=== PATIENT | male | born 1950 | race Two or more races ===

== ENCOUNTER 2016-10-11 14:41 | Inpatient (IN) | payer OTHER ==
--- NOTE | 2016-10-11 14:55 | EDPHY ---
H & P Stated Complaint: CP central since 1130 Time Seen by Provider: 10/11/16 14:54 HPI/ROS: CHIEF COMPLAINT: Severe chest and epigastric pain HISTORY OF PRESENT ILLNESS: The patient presents to the emergency department with severe chest and epigastric pain which began at 11:30 a.m. this morning. The patient reports vomiting x2. The denies prior history of the symptoms. The patient does have a history of hypertension and takes nifedipine. The patient denies additional medications. The patient denies significant surgical history. The patient complains of 10/10 pain. The patient denies history of alcohol use. The patient denies additional complaints. He has no history of exertional chest pain or shortness of breath. REVIEW OF SYSTEMS: A comprehensive 10 point review of systems is otherwise negative aside from elements mentioned in the history of present illness. Source: Patient Exam Limitations: No limitations - Personal History Current Tetanus/Diphtheria Vaccine: Yes Current Tetanus Diphtheria and Acellular Pertussis (TDAP): Yes Tetanus Vaccine Date: 2015 - Medical/Surgical History Hx Asthma: No Hx Chronic Respiratory Disease: No Hx Diabetes: No Hx Cardiac Disease: No Hx Renal Disease: No Hx Cirrhosis: No Hx Alcoholism: No Hx HIV/AIDS: No Hx Splenectomy or Spleen Trauma: No - Social History Smoking Status: Never smoked - Physical Exam Exam: General Appearance: Alert, uncomfortable Eyes: Pupils equal and round no pallor or injection ENT, Mouth: Mucous membranes moist Respiratory: There are no retractions, lungs are clear to auscultation Cardiovascular: Regular rate and rhythm Gastrointestinal: Epigastric tenderness to palpation, generalized abdominal tenderness to palpation Neurological: A&O, normal motor function, normal sensory exam, normal cranial nerves Skin: Warm and dry, no rashes Musculoskeletal: Neck is supple nontender Extremities: symmetrical, full range of motion Constitutional: Initial Vital Signs Temperature (C) 36.1 C 10/11/16 14:48 Heart Rate 86 10/11/16 14:48 Respiratory Rate 18 10/11/16 14:48 Blood Pressure 110/70 10/11/16 14:48 O2 Sat (%) 93 10/11/16 14:48 O2 Delivery Mode Room Air Allergies/Adverse Reactions: No Known Allergies Allergy (Unverified 10/11/16 14:53) Home Medications: Medication Instructions Recorded Meclizine HCl 25 mg PO DAILY PRN 10/11/16 NIFEdipine [Nifedipine ER] 30 mg PO DAILY 10/11/16 Medical Decision Making - Diagnostics EKG Interpretation: EKG: Complete interpretation has been separately recorded in the [employer] archive. Summary impression: Sinus rhythm, rate 79 Imaging: CT chest abdomen pelvis with IV contrast: Acute pancreatitis is noted, no evidence of dissection or pulmonary embolism. Images reviewed by myself and discussed with radiologist Dr. Jono Valero ED Course/Re-evaluation: The patient presents to the ED with acute chest and epigastric pain. I attempted a bedside ultrasound but was unable to visualize the aorta secondary to intra-abdominal gas. The patient was taken for a stat CT scan of the chest abdomen pelvis given his initial exam and concerns about possible dissection or pulmonary embolism. His initial EKG demonstrates no evidence of ischemia. The patient was noted to have an elevated lipase of 13,000. The patient denies any alcohol use. The patient is noted to have evidence of biliary obstruction. There is no obvious source of this noted on his CT scan. Consultation was made with Dr. Devyn Hall who will admit the patient. Dr. Hall will order an MRCP for further evaluation of the patient's biliary obstruction and pancreatitis. Differential Diagnosis: Differential diagnosis considered includes pancreatitis, cholecystitis, aortic dissection, myocardial infarction, pulmonary embolism - Data Points Laboratory Results: Laboratory Results 10/11/16 14:58 10/11/16 14:58 10/11/16 10/11/16 10/11/16 15:11 14:58 14:58 WBC 13.64 10^3/uL H 10^3/uL (3.80-9.50) RBC 5.69 10^6/uL 10^6/uL (4.40-6.38) Hgb 18.4 g/dL H g/dL (13.7-17.5) Hct 50.3 % % (40.0-51.0) MCV 88.4 fL fL (81.5-99.8) MCH 32.3 pg pg (27.9-34.1) MCHC 36.6 g/dL g/dL (32.4-36.7) RDW 12.2 % % (11.5-15.2) Plt Count 215 10^3/uL 10^3/uL (150-400) MPV 11.3 fL fL (8.7-11.7) Neut % (Auto) 82.1 % H % (39.3-74.2) Lymph % (Auto) 9.7 % L % (15.0-45.0) [place] % (Auto) 7.3 % % (4.5-13.0) Eos % (Auto) 0.4 % L % (0.6-7.6) Baso % (Auto) 0.2 % L % (0.3-1.7) Nucleat RBC Rel Count 0.0 % % (0.0-0.2) Absolute Neuts (auto) 11.20 10^3/uL H 10^3/uL (1.70-6.50) Absolute Lymphs (auto) 1.32 10^3/uL 10^3/uL (1.00-3.00) Absolute Monos (auto) 1.00 10^3/uL H 10^3/uL (0.30-0.80) Absolute Eos (auto) 0.05 10^3/uL 10^3/uL (0.03-0.40) Absolute Basos (auto) 0.03 10^3/uL 10^3/uL (0.02-0.10) Absolute Nucleated RBC 0.00 10^3/uL 10^3/uL (0-0.01) Immature Gran % 0.3 % % (0.0-1.1) Immature Gran # 0.04 10^3/uL 10^3/uL (0.00-0.10) Sodium 141 mEq/L mEq/L (134-144) Potassium 4.0 mEq/L mEq/L (3.5-5.2) Chloride 105 mEq/L mEq/L (97-110) Carbon Dioxide 24 mEq/l mEq/l (22-31) Anion Gap 12 mEq/L mEq/L (8-16) BUN 17 mg/dL mg/dL (7-23) Creatinine 1.0 mg/dL mg/dL (0.7-1.3) Estimated GFR > 60 Glucose 181 mg/dL H mg/dL (70-100) Calcium 9.4 mg/dL mg/dL (8.5-10.4) Total Bilirubin 7.9 mg/dL H mg/dL (0.1-1.4) Conjugated Bilirubin 5.7 mg/dL H mg/dL (0.0-0.5) Unconjugated Bilirubin 2.2 mg/dL H mg/dL (0.0-1.1) AST 280 IU/L H IU/L (17-59) ALT 240 IU/L H IU/L (21-72) Alkaline Phosphatase 149 IU/L H IU/L (38-126) Troponin I < 0.012 ng/mL ng/mL (0-0.034) Total Protein 7.8 g/dL g/dL (6.3-8.2) Albumin 4.2 g/dL g/dL (3.5-5.0) Lipase 86657.0 IU/L H IU/L (23-300) Departure - Departure Disposition: [facility] Inpatient Acute Clinical Impression: Pancreatitis, Biliary obstruction Condition: Fair
--- NOTE | 2016-10-11 14:59 | CPEKG ---
Heart Rate: 79 RR Interval: 759 P-R Interval: 168 QRSD Interval: 90 QT Interval: 376 QTC Interval: 432 P [place]: 58 QRS [place]: -41 T Wave [place]: 38 EKG Severity - ABNORMAL ECG - EKG Impression: SINUS RHYTHM EKG Impression: LEFT ANTERIOR FASCICULAR BLOCK Electronically Signed By: Esteban Mcgovern 11-Oct-2016 15:29:25
[2016-10-11 15:16] LABS: % IMMATURE GRANULYOCYTES 0.3 % (0.0-1.1); ABSOLUTE IMMATURE GRANULOCYTES 0.04 10^3/uL (0.00-0.10); ADD DIFF? NO; ADD MORPH? NO; ADD SCAN? NO; ATYPICAL LYMPHOCYTE FLAG 0 (0-99); FRAGMENT RBC FLAG 0 (0-99); HEMATOCRIT 50.3 % (40.0-51.0); HEMOGLOBIN 18.4 g/dL (13.7-17.5); LEFT SHIFT FLG 10 (0-99); LIPEMIA HEMOLYSIS FLAG 90 (0-99); MEAN CELL HEMOGLOBIN 32.3 pg (27.9-34.1); MEAN CELL HEMOGLOBIN CONCENTR. 36.6 g/dL (32.4-36.7); MEAN CELL VOLUME 88.4 fL (81.5-99.8); MEAN PLATELET VOLUME 11.3 fL (8.7-11.7); PLATELET CLUMPS FLAG 10 (0-99); PLATELET COUNT 215 10^3/uL (150-400); RED BLOOD CELL COUNT 5.69 10^6/uL (4.40-6.38); RED CELL DISTRIBUTION WIDTH 12.2 % (11.5-15.2)
[2016-10-11] MEDS ORDERED: IOPAMIDOL (ISOVUE 370) 100 ML BTL IV ONE (15:19)
[2016-10-11 15:23] LABS: ALANINE AMINOTRANSFERASE 240 IU/L (21-72); ALBUMIN 4.2 g/dL (3.5-5.0); ALKALINE PHOSPHATASE 149 IU/L (38-126); ANION GAP 12 mEq/L (8-16); ASPARTATE AMINOTRANSFERASE 280 IU/L (17-59); BILIRUBIN,TOTAL 7.9 mg/dL (0.1-1.4); BILIRUBIN-CONJUGATED 5.7 mg/dL (0.0-0.5); BILIRUBIN-UNCONJUGATED 2.2 mg/dL (0.0-1.1); CALCIUM 9.4 mg/dL (8.5-10.4); CARBON DIOXIDE 24 mEq/l (22-31); CHLORIDE 105 mEq/L (97-110); GLOMERULAR FILTRATION RATE > 60; GLUCOSE 181 mg/dL (70-100); SODIUM 141 mEq/L (134-144); TOTAL PROTEIN 7.8 g/dL (6.3-8.2)
[2016-10-11] MEDS ORDERED: HYDROmorphONE/DILAUDID 1 MG/ML SYR IVP ONE ×2 (15:58→18:15)
[2016-10-11] MEDS ORDERED: ONDANSETRON 4 MG/2 ML VIAL IVP ONE (15:58)
[2016-10-11] MEDS ORDERED: NS 1,000 ML IV ONE (15:58)
[2016-10-11] MEDS ORDERED: HYDROmorphONE/DILAUDID 1 MG/ML SYR ONE (17:31)
[2016-10-11] MEDS ORDERED: HYDROmorphONE/DILAUDID 1 MG/ML SYR IVP PRN (18:46)
--- NOTE | 2016-10-11 18:51 | PDGENHP ---
History and Physical History and Physical: HISTORY AND PHYSICAL CC: Abdominal pain in epigastrium HISTORY: This patient who has no history of abdominal surgeries or illnesses in the past comes in with 24 hours of epigastric pain and vomiting. Has been no blood in his emesis. He has been having normal stools. He does not take any nonsteroidal anti-inflammatory medicines. He has no known fevers but was having some sweats earlier during have significant vomiting episodes. Has never had any episodes like this before. There is no family history of abdominal illnesses or surgeries. He has no use of alcohol in his lifetime ROS: A comprehensive 10 system review revealed no other significant findings PAST MEDICAL HISTORY: Really quite healthy with no significant illnesses FAMILY MEDICAL HISTORY: He and his family states there is no significant illness in the family SOCIAL HISTORY: He is here visiting family members. He lives in [place]. He had previously moved to the [facility] and worked here as a [employer] until 10 years ago when he retired and moved back to [place]. No use of tobacco alcohol or drugs MEDICATIONS: The patients list has been reconciled by our clinical pharmacist in the EMR. I have reviewed the list and ordered appropriate medicines. 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 Gallbladder is enlarged but the bile duct does not look enlarged. Stones are not specifically identified. No significant vascular abnormalities. There is also CT scan of the chest done without concerning abnormality. ASSESSMENT: -ACUTE PANCREATITIS IN THE ABSENCE OF ALCOHOL WITH ELEVATED LIVER ENZYMES AND BILIRUBIN. STONES ARE HIGHLY SUSPECTED THOUGH NONE SEEN ON THE CT. HE DOES NOT HAVE SIGNS OF PANCREATIC COMPLICATIONS OR HIGH RISK FOR COMPLICATIONS AT THE MOMENT. PLANS: -inpatient admission as he will clearly need more than 48 hours to recover to the point of being able to eat safely and will need other procedures -Abdominal ultrasound to look for stones -Could potentially need MRCP and/or ERCP -At some point may need his gallbladder removed as well I have reviewed the patient's case in detail with Dr. akhil Matute
[2016-10-11 19:32] LABS: WBC, SYNOVIAL FLUID 45039 /mm3 (0-150)
[2016-10-11] MEDS ORDERED: HYDROmorphONE/DILAUDID 2 MG/ML INJ IVP ONE (19:45)
[2016-10-11] MEDS: NS 1,000 ML IV SCH (20:52)
[2016-10-11] MEDS ORDERED: NALOXONE HCL 0.4 MG/ML INJ IVP PRN (21:40)
[2016-10-11] MEDS: HYDROmorphONE/DILAUDID 6 MG/30 ML PCA IV PRN (22:13)
[2016-10-12] MEDS: ZOLPIDEM TARTRATE 5 MG TAB PO PRN (01:43)
[2016-10-12] MEDS: NS 1,000 ML IV SCH ×3 (03:53→20:38)
[2016-10-12] MEDS: ONDANSETRON 4 MG/2 ML VIAL IVP PRN (05:10)
[2016-10-12 05:28] LABS: % IMMATURE GRANULYOCYTES 0.4 % (0.0-1.1); ABSOLUTE IMMATURE GRANULOCYTES 0.09 10^3/uL (0.00-0.10); ADD DIFF? NO; ADD MORPH? NO; ADD SCAN? NO; ATYPICAL LYMPHOCYTE FLAG 0 (0-99); FRAGMENT RBC FLAG 0 (0-99); HEMATOCRIT 52.8 % (40.0-51.0); HEMOGLOBIN 18.2 g/dL (13.7-17.5); LEFT SHIFT FLG 20 (0-99); LIPEMIA HEMOLYSIS FLAG 90 (0-99); MEAN CELL HEMOGLOBIN CONCENTR. 34.5 g/dL (32.4-36.7); MEAN CELL VOLUME 92.8 fL (81.5-99.8); MEAN PLATELET VOLUME 11.5 fL (8.7-11.7); PLATELET CLUMPS FLAG 10 (0-99); PLATELET COUNT 220 10^3/uL (150-400); RED BLOOD CELL COUNT 5.69 10^6/uL (4.40-6.38); RED CELL DISTRIBUTION WIDTH 12.5 % (11.5-15.2)
[2016-10-12 05:43] LABS: ALANINE AMINOTRANSFERASE 174 IU/L (21-72); ALBUMIN 3.7 g/dL (3.5-5.0); ALKALINE PHOSPHATASE 124 IU/L (38-126); ANION GAP 16 mEq/L (8-16); ASPARTATE AMINOTRANSFERASE 105 IU/L (17-59); BILIRUBIN,TOTAL 2.4 mg/dL (0.1-1.4); CALCIUM 8.6 mg/dL (8.5-10.4); CARBON DIOXIDE 18 mEq/l (22-31); CHLORIDE 110 mEq/L (97-110); CREATININE 1.1 mg/dL (0.7-1.3); GLOMERULAR FILTRATION RATE > 60; GLUCOSE 115 mg/dL (70-100); POTASSIUM 4.4 mEq/L (3.5-5.2); SODIUM 144 mEq/L (134-144); TOTAL PROTEIN 7.1 g/dL (6.3-8.2)
[2016-10-12 05:50] LABS: BILIRUBIN-CONJUGATED 0.9 mg/dL (0.0-0.5); BILIRUBIN-UNCONJUGATED 1.5 mg/dL (0.0-1.1)
[2016-10-12] MEDS: ACETAMINOPHEN 325 MG TAB PO PRN ×2 (06:28→16:32)
[2016-10-12] MEDS: ENOXAPARIN 40 MG/0.4 ML SYR SC SCH (08:16)
[2016-10-12] MEDS: NIFEdipine ER 30 MG TAB PO SCH (08:16)
[2016-10-12] MEDS ORDERED: IBUPROFEN 800 MG TAB PO ONE (08:56)
[2016-10-12] MEDS ORDERED: NS 1,000 ML IV ONE ×2 (08:56→11:34)
[2016-10-12 12:29] LABS: CHOLESTEROL 145 mg/dL (140-220); CHOLESTEROL/HDL RATIO 4.68 RATIO (1.00-4.97); HIGH DENSITY LIPOPROTEIN 31 mg/dL (40-65); LDL/HDL RATIO 2.97 RATIO (1.00-3.64); LOW DENSITY LIPOPROTEIN 92 mg/dL (80-100); NON-HIGH DENSITY LIPOPROTEIN 114 mg/dL (90-129); TRIGLYCERIDE 113 mg/dL (40-150); VERY LOW DENSITY LIPOPROTEINS 22 mg/dL (8-25)
[2016-10-12] MEDS: HYDROmorphONE/DILAUDID 6 MG/30 ML PCA IV PRN (13:31)
--- NOTE | 2016-10-12 14:13 | HOSPPROG ---
Hospitalist Progress Note Assessment/Plan: # Acute pancreatitis- severe- CT abdomen pelvis( personally reviewed and interpreted) shows severe pancreatitis no pseudocyst- or cholelithiasis patient with sudden onset severe epigastric pain- no significant alcohol history- meds reviewed none associated with pancreatitis - continue NPO - continue IV fluids - continue IV pain meds - send lipid panel - MRCP # SIRS secondary to pancreatitis- patient tachycardic with a leukocytosis of 20 oxygen saturations 92% on 1 L blood cultures no growth to date- UA negative - no empiric antibiotics - continue aggressive fluid resuscitation # sinus tachycardia- suspect secondary to hypovolemia and pain - treat as above # prophylaxis Lovenox # diet NPO # disposition greater than 2 midnights as patient is requiring IV pain medications and further diagnostics for pancreatitis I Have discussed case with the RN- we will bolus normal saline today to address hypovolemia and tachycardia Subjective: terrible pain Objective: Vital Signs Temp Pulse Resp BP Pulse Ox 36.8 C 105 H 16 131/80 H 91 L 10/12/16 12:37 10/12/16 12:37 10/12/16 12:37 10/12/16 12:37 10/12/16 12:37 Laboratory Results 10/12/16 05:11 10/12/16 05:11 10/11/16 10/12/16 10/13/16 05:59 05:59 05:59 Intake Total 2142 Output Total 320 250 Balance 1822 -250 - Physical Exam Constitutional: appears nourished Eyes: anicteric sclera Ears, Nose, Mouth, Throat: dry mucous membranes Cardiovascular: regular rate and rhythym, tachycardia Respiratory: no respiratory distress Gastrointestinal: normoactive bowel sounds Genitourinary: no bladder fullness Skin: warm, normal color Musculoskeletal: No asymmetric calves Neurologic: AAOx3 Psychiatric: interacting appropriately Lymph, Heme, Immunologic: no cervical LAD ICD10 Worksheet Patient Problems: Problems Problem Status Onset Biliary obstruction Acute Pancreatitis Acute
[2016-10-13] MEDS: ACETAMINOPHEN 325 MG TAB PO PRN ×2 (02:10→22:34)
[2016-10-13] MEDS: NS 1,000 ML IV SCH ×2 (02:50→20:21)
[2016-10-13 05:31] LABS: HEMATOCRIT 47.2 % (40.0-51.0); HEMOGLOBIN 16.1 g/dL (13.7-17.5); MEAN CELL HEMOGLOBIN 31.6 pg (27.9-34.1); MEAN CELL HEMOGLOBIN CONCENTR. 34.1 g/dL (32.4-36.7); MEAN CELL VOLUME 92.5 fL (81.5-99.8); RED BLOOD CELL COUNT 5.1 10^6/uL (4.40-6.38); RED CELL DISTRIBUTION WIDTH 12.5 % (11.5-15.2)
[2016-10-13 05:57] LABS: ALANINE AMINOTRANSFERASE 96 IU/L (21-72); ALKALINE PHOSPHATASE 89 IU/L (38-126); ANION GAP 9 mEq/L (8-16); ASPARTATE AMINOTRANSFERASE 40 IU/L (17-59); BILIRUBIN,TOTAL 2.4 mg/dL (0.1-1.4); CARBON DIOXIDE 21 mEq/l (22-31); CHLORIDE 116 mEq/L (97-110); CREATININE 0.8 mg/dL (0.7-1.3); GLOMERULAR FILTRATION RATE > 60; GLUCOSE 96 mg/dL (70-100); POTASSIUM 4.1 mEq/L (3.5-5.2); SODIUM 146 mEq/L (134-144); TOTAL PROTEIN 5.8 g/dL (6.3-8.2)
[2016-10-13 06:03] LABS: BILIRUBIN-UNCONJUGATED 1.4 mg/dL (0.0-1.1)
[2016-10-13] MEDS: NIFEdipine ER 30 MG TAB PO SCH (08:05)
[2016-10-13] MEDS: ENOXAPARIN 40 MG/0.4 ML SYR SC SCH (08:05)
--- NOTE | 2016-10-13 12:29 | HOSPPROG ---
Hospitalist Progress Note Assessment/Plan: # Acute zpxincuqulrt-reegkt-rosvegscae 2/ passed cholelithiasis MRCP( personally reviewed and interpreted) shows cholelithiasis and no cholecystitis- no ductal dilatation noted patient with sudden onset severe epigastric pain- no significant alcohol history- meds reviewed none associated with pancreatitis - continue NPO - potentially advanced to clear liquids later - continue IV fluids - continue IV pain meds # SIRS secondary to pancreatitis- patient tachycardic with a leukocytosis of 20 oxygen saturations 92% on 1 L blood cultures no growth to date- UA negative - no empiric antibiotics - continue aggressive fluid resuscitation # acute leukocytosis - 13->20-> 19 suspecting secondary to acute pancreatitis MRCP without cholecystitis- blood cultures NGTD - no empiric antibiotics continue to monitor # acute hypoxic respiratory failure- oxygen saturations 93% on 3 L- suspect this is related to pain medication since splinting secondary to abdominal pain chest imaging on admit without infiltrates - encouraged ambulation - encouraged incentive spirometer # sinus tachycardia- suspect secondary to hypovolemia and pain- improved but persistent - treat as above # prophylaxis Lovenox # diet NPO # disposition greater than 2 midnights as patient is requiring IV pain medications and further diagnostics for pancreatitis I Have discussed case with the RN- and encourage ambulation and incentive spirometry Subjective: pain slightly improved today Objective: Vital Signs Temp Pulse Resp BP Pulse Ox 36.7 C 112 H 24 H 121/72 H 90 L 10/13/16 11:26 10/13/16 11:26 10/13/16 11:33 10/13/16 11:26 10/13/16 11:26 Laboratory Results 10/13/16 05:21 10/13/16 05:21 10/12/16 10/13/16 10/14/16 05:59 05:59 05:59 Intake Total 2142 3412 Output Total 320 920 450 Balance 1822 2492 -450 - Physical Exam Constitutional: appears nourished Eyes: anicteric sclera Ears, Nose, Mouth, Throat: dry mucous membranes Cardiovascular: regular rate and rhythym, tachycardia Respiratory: no respiratory distress, no rales or rhonchi Gastrointestinal: normoactive bowel sounds, tenderness, No guarding, No rebound Genitourinary: no bladder fullness Skin: warm, normal color Musculoskeletal: No asymmetric calves Neurologic: AAOx3 Psychiatric: interacting appropriately, not anxious Lymph, Heme, Immunologic: no cervical LAD ICD10 Worksheet Patient Problems: Problems Problem Status Onset Biliary obstruction Acute Pancreatitis Acute
[2016-10-13] MEDS ORDERED: NS 1,000 ML IV ONE (12:52)
[2016-10-13] MEDS: HYDROmorphONE/DILAUDID 6 MG/30 ML PCA IV PRN (15:00)
[2016-10-13] MEDS: ZOLPIDEM TARTRATE 5 MG TAB PO PRN (22:34)
[2016-10-14 05:30] LABS: ALANINE AMINOTRANSFERASE 68 IU/L (21-72); ALBUMIN 2.7 g/dL (3.5-5.0); ALKALINE PHOSPHATASE 82 IU/L (38-126); ANION GAP 7 mEq/L (8-16); ASPARTATE AMINOTRANSFERASE 29 IU/L (17-59); BILIRUBIN,TOTAL 1.6 mg/dL (0.1-1.4); CARBON DIOXIDE 24 mEq/l (22-31); CHLORIDE 114 mEq/L (97-110); CREATININE 0.7 mg/dL (0.7-1.3); GLOMERULAR FILTRATION RATE > 60; GLUCOSE 91 mg/dL (70-100); POTASSIUM 3.8 mEq/L (3.5-5.2); SODIUM 145 mEq/L (134-144); TOTAL PROTEIN 5.7 g/dL (6.3-8.2)
[2016-10-14] MEDS: NS 1,000 ML IV SCH ×2 (06:50→21:46)
[2016-10-14] MEDS: HYDROmorphONE/DILAUDID 6 MG/30 ML PCA IV PRN (08:11)
[2016-10-14] MEDS: ENOXAPARIN 40 MG/0.4 ML SYR SC SCH (08:12)
[2016-10-14] MEDS: NIFEdipine ER 30 MG TAB PO SCH (08:12)
[2016-10-14] MEDS ORDERED: PNEUMOC 13-VAL CONJ-DIP CRM/PF 0.5 ML SYR IM ONE ×2 (08:30→16:00)
[2016-10-14] MEDS: ACETAMINOPHEN 325 MG TAB PO PRN (11:27)
--- NOTE | 2016-10-14 11:52 | HOSPPROG ---
Hospitalist Progress Note Assessment/Plan: DIAGNOSES: # Acute pwappknubmug-bvzabr-arigzhgjew 2/2 passed cholelithiasis -MRCP shows cholelithiasis and no cholecystitis, no ductal dilatation noted -still with bad pain and now with fever; ? 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 -improved after arthrocentesis and with rest # prophylaxis Lovenox # diet NPO PLANS: -continue NPO, symptomatic medications, IV fluids -will consult Gastroenterology at this time; would consider whether repeat CT would be of use were whether we should consider ERCP or endoscopic ultrasound SUBJECTIVE: Still with significant epigastric pain and midback pain Feels weak a bit lightheaded with ambulation Some chills No appetite L knee no longer hurts OBJECTIVE Vitals reviewed: Exam: alert oriented looks uncomfortable skin warm dry color ok, no jaundice resps not labored lungs clear BSs heart regular abd soft mildly distended and with some epigastric tenderness, no rebound, bowel sounds absent limbs warm, no edema; no effusion at left knee or tenderness at this time; moving knee a lot better iv site ok Laboratory data: liver enzymes and bili normalizing, it somewhat hypernatremic, renal fxn ok, sugars normal today L knee synovial fluid w Ca Pyrophosphate crystals and 45,000 wbcs Objective: Vital Signs Temp Pulse Resp BP Pulse Ox 38.2 C 106 H 20 130/93 H 92 10/14/16 10:32 10/14/16 10:32 10/14/16 10:32 10/14/16 10:32 10/14/16 10:32 Laboratory Results 10/13/16 05:21 10/14/16 04:56 10/13/16 10/14/16 10/15/16 06:59 06:59 06:59 Intake Total 3412 1100 Output Total 920 1775 300 Balance 2492 -675 -300 ICD10 Worksheet Patient Problems: Problems Problem Status Onset Biliary obstruction Acute Pancreatitis Acute
[2016-10-14] MEDS ORDERED: IOPAMIDOL (ISOVUE-300) 100 ML BTL IV ONE (14:17)
[2016-10-14] MEDS: ONDANSETRON 4 MG/2 ML VIAL IVP PRN (21:47)
[2016-10-14] MEDS: ZOLPIDEM TARTRATE 5 MG TAB PO PRN (21:47)
[2016-10-15 04:52] LABS: % IMMATURE GRANULYOCYTES 0.5 % (0.0-1.1); ABSOLUTE IMMATURE GRANULOCYTES 0.08 10^3/uL (0.00-0.10); ADD DIFF? NO; ADD MORPH? NO; ADD SCAN? NO; ATYPICAL LYMPHOCYTE FLAG 0 (0-99); FRAGMENT RBC FLAG 0 (0-99); HEMATOCRIT 42.1 % (40.0-51.0); HEMOGLOBIN 14.7 g/dL (13.7-17.5); LEFT SHIFT FLG 40 (0-99); LIPEMIA HEMOLYSIS FLAG 90 (0-99); MEAN CELL HEMOGLOBIN 32.5 pg (27.9-34.1); MEAN CELL HEMOGLOBIN CONCENTR. 34.9 g/dL (32.4-36.7); MEAN CELL VOLUME 92.9 fL (81.5-99.8); MEAN PLATELET VOLUME 11.4 fL (8.7-11.7); PLATELET CLUMPS FLAG 0 (0-99); PLATELET COUNT 198 10^3/uL (150-400); RED BLOOD CELL COUNT 4.53 10^6/uL (4.40-6.38); RED CELL DISTRIBUTION WIDTH 12.4 % (11.5-15.2)
[2016-10-15 04:56] LABS: ANION GAP 10 mEq/L (8-16); CARBON DIOXIDE 25 mEq/l (22-31); CHLORIDE 111 mEq/L (97-110); CREATININE 0.6 mg/dL (0.7-1.3); GLOMERULAR FILTRATION RATE > 60; GLUCOSE 84 mg/dL (70-100); POTASSIUM 3.2 mEq/L (3.5-5.2); SODIUM 146 mEq/L (134-144)
[2016-10-15] MEDS: NS 1,000 ML IV SCH (08:46)
[2016-10-15] MEDS ORDERED: D5W 1/4 NS W/ 20 KCl/L 1,000 ML IV SCH (09:00)
[2016-10-15] MEDS: NIFEdipine ER 30 MG TAB PO SCH (09:58)
[2016-10-15] MEDS: ENOXAPARIN 40 MG/0.4 ML SYR SC SCH (09:58)
[2016-10-15 10:41] LABS: COLOR YELLOW; LEUKOCYTE ESTERASE,URINE NEGATIVE (NEGATIVE); NITRITE,URINE NEGATIVE (NEGATIVE)
--- NOTE | 2016-10-15 10:46 | HOSPPROG ---
Hospitalist Progress Note Assessment/Plan: DIAGNOSES: # Acute sdzchrgiebvd-rowzxu-rwiubpulrd 2/2 passed cholelithiasis -MRCP shows cholelithiasis and no cholecystitis, no ductal dilatation noted -repeat CT with no necrosis, stones, ductal dilatation, phlegmon or other complication -seems to be improving slightly today and is actually thirsty and hungry # Fever -suspect this is due to his pancreatitis but at this time will look for other sources with cultures and chest x-ray # SIRS secondary to pancreatitis -at this time no specific sign of infection or necrosis # acute delirium, metabolic multifactorial with fever, electrolyte abnormalities, inflammation, pain medicine, disrupted sleep, disrupted nutrition , etc # acute hypoxic respiratory failure- oxygen saturations 93% on 3 L -likely related to pain medication and splinting secondary to abdominal pain -encouraged ambulation and spirometer # 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 -improved after arthrocentesis and with rest # prophylaxis Lovenox # diet NPO PLANS: -trial of oral fluids today, otherwise continue symptomatic medications, IV fluids -chest x-ray -blood cultures and urine culture -delirium treatment and prevention measures, will avoid any sedating medicines as possible -Will add melatonin for sleep at night SUBJECTIVE: He has had some degree of confusion through the night, better this morning but still very mildly disoriented At this time slightly less epigastric pain and midback pain but still using BIZTALK ARCHITECT narcotic Still a bit lightheaded with ambulation No longer having chills Now very thirsty and slightly hungry L knee no longer hurts OBJECTIVE Vitals reviewed: 37.6 maximum temperature so far today otherwise stable Exam: alert oriented more relaxed this morning, minimal disorientation overall doing well mentation [place] this morning skin warm dry color ok, no jaundice resps not labored lungs clear BSs heart regular abd soft mildly distended, less epigastric tenderness, no rebound, bowel sounds absent limbs warm, no edema; no effusion at left knee or tenderness at this time; moving knee well iv site ok Objective: Vital Signs Temp Pulse Resp BP Pulse Ox 37.6 C 106 H 20 147/83 H 90 L 10/15/16 10:00 10/15/16 10:00 10/15/16 10:00 10/15/16 10:00 10/15/16 10:00 Laboratory Results 10/15/16 04:36 10/15/16 04:36 10/14/16 10/15/16 10/16/16 06:59 06:59 06:59 Intake Total 1100 1614 Output Total 1315 2122 300 Balance -675 -511 -300 ICD10 Worksheet Patient Problems: Problems Problem Status Onset Biliary obstruction Acute Pancreatitis Acute
[2016-10-15] MEDS: MELATONIN 3 MG TAB PO SCH (22:39)
[2016-10-16] MEDS: D5W 1/4 NS W/ 20 KCl/L 1,000 ML IV SCH ×2 (01:29→14:40)
[2016-10-16] MEDS: NIFEdipine ER 30 MG TAB PO SCH (08:53)
[2016-10-16] MEDS: ENOXAPARIN 40 MG/0.4 ML SYR SC SCH (08:53)
--- NOTE | 2016-10-16 11:36 | HOSPPROG ---
Hospitalist Progress Note Assessment/Plan: DIAGNOSES: # Acute pancreatitis-suspecting 2/2 passed cholelithiasis -MRCP shows cholelithiasis and no cholecystitis, no ductal dilatation noted -repeat CT with no necrosis, stones, ductal dilatation, phlegmon or other complication -notably better today with no pain, no tenderness, and is getting 100 for solid food, tolerating clear liquids well, in he no longer has fevers. Also his oxygen needs her decreased markedly to 1 L. 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 However I did talk to him about the recommendation to have his gallbladder removed in the potential timing of that. Given the options of doing that now or as an outpatient he would prefer to proceed with cholecystectomy at this time. I will therefore make him NPO and I have consulted Dr. Lisa from General surgery. -will hold his Lovenox for now -continue ambulation SUBJECTIVE: His pain is resolved at this point is starting to feel hungry for solid food He is not short of breath He and his family and the nursing staff for no longer noticing confusion He is ambulating well OBJECTIVE Vitals reviewed: At this time stable without fever Exam: alert oriented relaxed skin warm dry color ok, no jaundice resps not labored lungs clear BSs heart regular abd soft mildly nondistended, no tenderness at all today limbs warm, no edema; no effusion at left knee or tenderness at this time; moving knee well iv site ok Objective: Vital Signs Temp Pulse Resp BP Pulse Ox 37.5 C 77 16 129/79 H 92 10/16/16 10:20 10/16/16 10:20 10/16/16 10:20 10/16/16 10:20 10/16/16 10:20 Laboratory Results 10/15/16 04:36 10/15/16 04:36 10/15/16 10/16/16 10/17/16 06:59 06:59 06:59 Intake Total 1614 1848 Output Total 6047 891 Balance -511 1198 ICD10 Worksheet Patient Problems: Problems Problem Status Onset Biliary obstruction Acute Pancreatitis Acute
[2016-10-16 12:26] LABS: HEMATOCRIT 41.3 % (40.0-51.0); HEMOGLOBIN 14.7 g/dL (13.7-17.5); MEAN CELL HEMOGLOBIN 31.8 pg (27.9-34.1); MEAN CELL HEMOGLOBIN CONCENTR. 35.6 g/dL (32.4-36.7); MEAN CELL VOLUME 89.4 fL (81.5-99.8); RED BLOOD CELL COUNT 4.62 10^6/uL (4.40-6.38); RED CELL DISTRIBUTION WIDTH 12.2 % (11.5-15.2)
[2016-10-16 12:34] LABS: INR 1.15 (0.83-1.16); PROTIME(PATIENT) 14.6 SEC (12.0-15.0)
[2016-10-16 12:38] LABS: ALANINE AMINOTRANSFERASE 55 IU/L (21-72); ALKALINE PHOSPHATASE 90 IU/L (38-126); ANION GAP 5 mEq/L (8-16); ASPARTATE AMINOTRANSFERASE 40 IU/L (17-59); BILIRUBIN,TOTAL 1.7 mg/dL (0.1-1.4); CALCIUM 7.8 mg/dL (8.5-10.4); CARBON DIOXIDE 30 mEq/l (22-31); CHLORIDE 102 mEq/L (97-110); CREATININE 0.6 mg/dL (0.7-1.3); GLOMERULAR FILTRATION RATE > 60; GLUCOSE 121 mg/dL (70-100); POTASSIUM 3.3 mEq/L (3.5-5.2); SODIUM 137 mEq/L (134-144)
--- NOTE | 2016-10-16 15:08 | PDCONSULT ---
Cable Former Note: Mr. Nixon was admitted 10/11/16 for evaluation and treatment of abdominal pain. He was found to have pancreatitis and gallstones. He was treated medically and has been improving slowly. Surgical consultation was requested today at 12:30 for consideration of cholecystectomy. He had a clear liquid lunch today and received Lovenox 40 mg this morning at 0853. PMH: HTN chronic meds: Nifedipine XL 30 mg po q day. (He reports having received other medications from different doctors in [place], but stopped taking those) denies tobacco/EtOH use NKDA no prior surgery SH: here visiting family from [place]/daughter, and grand-daughter at the bedside FH: [place] ROS: denies jaundice, prior attacks of abd pain, melena, hamotchezia PE: pleasant elderly male in mild distress HEENT: - icterus/adenopathy Lungs: clear with dimished breath sounds at bases CVS: RRR/tachy Abd: soft/distended, tender epigastrium no RUQ tenderness/liver edge palpable 3 cm below costal margin Imaging studies: Ultrasound, CT x 2, MRI reviewed- CBD 3mm, multiple large gallstones, moderated inflammation/edema of the pancreas, no significant gallbladder wall thickening. Lab: bili 1.7 (elevated since admission, primarily unconjugated) transaminases elevated on admission now normal, wbc 14.5, HCT 41%, platlets 198K, PT/INR wnl Imp: 1. Pancreatitis, resolving/etiology uncertain. Gallstone pancreatitis not excluded, however, no dilatation of extrahepatic ducts and unconjugated hyperbilirubinemia argue against choledocholithiasis. 2. gallstones: multiple large gallstone noted on admission ultrasound and subsequent MRI 3. HTN 4. obesity (BMI>30) 5. anticoagulation-last Lovenox given at 0853 this morning Rec: I discussed the findings with the patient in detail in [place] and with the use of anatomic diagrams. He understands there is uncertainty in the etiology of his pancreatitis. We discussed cholecystectomy and he would like to proceed due to lack of resources in his home town in [place]. I discussed with him the risks of surgery and expected recovery. Informed consent was obtained. Surgery will be schedule at 2100 tonight due to anticoagulant administration this morning.
[2016-10-16] MEDS ORDERED: BUPIVACAINE 0.5% 30 ML SDV ONE ×2 (15:16→19:36)
[2016-10-16] MEDS ORDERED: ceFAZolin 1 GM/5 ML SYR ONE (15:17)
[2016-10-16] MEDS: POTASSIUM Cl (KCl) 20 MEQ in LR 1,000 ML IV SCH (16:12)
[2016-10-16] MEDS ORDERED: ceFAZolin 2 GM in D5W 100 ML IV ONE (21:11)
[2016-10-16] MEDS ORDERED: CEFAZOLIN 2 GM/DEXTROSE/100 ML BAG IV ONE (21:14)
[2016-10-16] MEDS ORDERED: RANITIDINE 50 MG/2 ML VIAL ONE (21:21)
[2016-10-16] MEDS ORDERED: MIDAZOLAM 2 MG/2 ML VIAL ONE (21:21)
[2016-10-16] MEDS ORDERED: DEXAMETHASONE 4 MG/ML VIAL ONE (21:21)
[2016-10-16] MEDS ORDERED: PROPOFOL 200 MG/20 ML VIAL ONE ×3 (21:21→22:41)
[2016-10-16] MEDS ORDERED: ROCURONIUM 50 MG/5 ML VIAL ONE ×2 (21:21→22:15)
[2016-10-16] MEDS: MELATONIN 3 MG TAB PO SCH (21:41)
[2016-10-16] MEDS ORDERED: ceFAZolin 2 GM/DEXTROSE 100 ML IV ONE (22:00)
[2016-10-16] MEDS ORDERED: PHENYLEPHRINE HCL 100 MCG/ML SYR ONE (22:41)
[2016-10-16] MEDS ORDERED: ONDANSETRON 4 MG/2 ML VIAL ONE (23:01)
[2016-10-16] MEDS ORDERED: GLYCOPYRROLATE 0.2 MG/1 ML VIAL ONE (23:04)
[2016-10-16] MEDS ORDERED: NEOSTIGMINE METHYLSULFATE 5 MG/5 ML SYR ONE (23:04)
--- NOTE | 2016-10-16 23:44 | POSTOPPROG ---
Post Op Note Date of Operation: 10/16/16 Surgeon: Jim Lisa (, FACS) Anesthesiologist: Mathew Alanis MD Anesthesia: GET(General Endotracheal) Pre-op Diagnosis: cholelithiasis/pancreatitis Post-op Diagnosis: acute and chronic cholecystitis/retroperitneal edema + inflammation Procedure: lap cholecystectomy Findings: acute and chronic cholecystitis/pancreatitis Inf/Abcess present in the surg proc area at time of surgery?: Yes Depth: Organ Space (bile cultures sent for aerobes and anaerobes) EBL: 150 ml
[2016-10-16] MEDS ORDERED: fentaNYL 100 MCG/2 ML INJ ONE (23:46)
[2016-10-17] MEDS: HYDROmorphONE/DILAUDID 6 MG/30 ML PCA IV PRN (00:35)
--- NOTE | 2016-10-17 01:16 | GOP ---
[f rep st] OPERATIVE REPORT DATE OF OPERATION: 10/16/2016 SURGEON: Jim Lisa MD ANESTHESIOLOGIST: Mathew Alanis MD PREOPERATIVE DIAGNOSIS: 1. Pancreatitis. 2. Cholelithiasis. POSTOPERATIVE DIAGNOSIS: 1. Pancreatitis. 2. Vyidl-[id number]-[id number] cholecystitis with cholelithiasis. 3. Hepatic steatosis with moderate portal venous congestion. PROCEDURE PERFORMED: Laparoscopic cholecystectomy. FINDINGS: ESTIMATED BLOOD LOSS: 150 mL. INDICATIONS: The patient is a 66-year-old male admitted to the medical service with pancreatitis. He was found to have gallstones at time of admission. After his pancreatitis began to resolve clini star, surgical consultation was requested for a cholecystectomy. The procedure, risks, and expecte d recovery were discussed with him with the aid of a manager risk management and the use of anatomic ilda grams. Informed consent was obtained. DESCRIPTION OF PROCEDURE: The patient was brought to the operating room and placed under general an esthesia. The abdomen was prepped and draped in usual fashion. Before proceeding, a time-out and i dentification of the patient were performed. 0.25% Marcaine was used to infiltrate all incision sites. A transverse incision was made below the umbilicus, carried through the skin and subcutaneous tissues. Ventral traction was applied to the a bdominal wall with a penetrating towel clamp. A Veress needle was introduced into the peritoneal ca vity and a pneumoperitoneum established with CO2 gas to a pressure of 15 mmHg. The Veress needle wa s withdrawn and replaced with a 12 mm bladeless trocar. A 5 mm 30-degree scope was introduced, and the peritoneal cavity was visualized. Additional 5 mm ports were placed in subxiphoid position to t he right of falciform ligament in the right upper quadrant midclavicular line and right upper quadra nt anterior axillary line. This allowed introduction of atraumatic grasping forceps. The patient had extensive chronic adhesions between the omentum and the edge of the liver overlying the gallbladder. These were slowly and carefully taken down with the Harmonic Scalpel, retracting t he omentum inferiorly to provide tension without injury to the liver. The gallbladder was freed up from these adhesions and was noted to be moderately distended and inflamed. The gallbladder was gra sped by the fundus and retracted cephalad. The infundibulum of the gallbladder was grasped and retr acted anteriorly and posteriorly while the peritoneum was dissected away from the cystic duct circum ferentially. Dissecting into the triangle of Calot and posteriorly, an area of almost variceal [place] ge of the draining veins of the gallbladder was encountered that appeared congested and varicose. T roublesome bleeding from this area was encountered and required careful dissection of the adjacent a natomic structures and judicious application of the Harmonic Scalpel to control. Blood loss for thi s portion of the operation was approximately 150 mL. Prior to and subsequently, there was virtually no bleeding. The cystic duct was hemoclipped and divided. The gallbladder was dissected away from the liver edge using the Harmonic Scalpel, again with minimal bleeding. A small piece of Surgicel was laid near t he cystic duct and overlying the area of bleeding. Inspection of the remainder of the abdominal cav ity revealed a moderately-enlarged liver, probably from hepatic steatosis, and edema of the retroper itoneum omentum, transverse mesocolon, and distal antrum, proximal duodenal consistent with retroper itoneal inflammation. There was no active saponification of fat, no cloudy peritoneal fluid or hemo rrhagic peritoneal fluid. Findings were consistent with retroperitoneal inflammation with the patie nt's known pancreatitis. The pneumoperitoneum was evacuated. The remaining ports were removed. The subcutaneous tissues wer e approximated with 3-0 Vicryl suture. Skin was closed with 4-0 Monocryl suture followed by Dermabo nd. The patient was returned extubated to the recovery room in satisfactory condition. Needle, spo nge, and instrument count were correct. COMPLICATIONS: None. /[id number]/MODL
[2016-10-17] MEDS: POTASSIUM Cl (KCl) 20 MEQ in LR 1,000 ML IV SCH (04:46)
[2016-10-17 04:52] LABS: ABSOLUTE IMMATURE GRANULOCYTES 0.14 10^3/uL (0.00-0.10); ADD DIFF? NO; ADD MORPH? NO; ADD SCAN? NO; ATYPICAL LYMPHOCYTE FLAG 10 (0-99); FRAGMENT RBC FLAG 0 (0-99); HEMATOCRIT 41.2 % (40.0-51.0); HEMOGLOBIN 14.5 g/dL (13.7-17.5); LEFT SHIFT FLG 10 (0-99); LIPEMIA HEMOLYSIS FLAG 90 (0-99); MEAN CELL HEMOGLOBIN 31.6 pg (27.9-34.1); MEAN CELL HEMOGLOBIN CONCENTR. 35.2 g/dL (32.4-36.7); MEAN CELL VOLUME 89.8 fL (81.5-99.8); MEAN PLATELET VOLUME 11.5 fL (8.7-11.7); PLATELET CLUMPS FLAG 0 (0-99); PLATELET COUNT 215 10^3/uL (150-400); RED BLOOD CELL COUNT 4.59 10^6/uL (4.40-6.38)
[2016-10-17 05:12] LABS: ALANINE AMINOTRANSFERASE 61 IU/L (21-72); ALBUMIN 2.8 g/dL (3.5-5.0); ALKALINE PHOSPHATASE 86 IU/L (38-126); ANION GAP 11 mEq/L (8-16); ASPARTATE AMINOTRANSFERASE 67 IU/L (17-59); BILIRUBIN,TOTAL 1.6 mg/dL (0.1-1.4); BILIRUBIN-UNCONJUGATED 0.6 mg/dL (0.0-1.1); CARBON DIOXIDE 25 mEq/l (22-31); CHLORIDE 104 mEq/L (97-110); CREATININE 0.6 mg/dL (0.7-1.3); GLOMERULAR FILTRATION RATE > 60; GLUCOSE 118 mg/dL (70-100); POTASSIUM 4.1 mEq/L (3.5-5.2); SODIUM 140 mEq/L (134-144); TOTAL PROTEIN 5.9 g/dL (6.3-8.2)
--- NOTE | 2016-10-17 08:36 | PDCONSULT ---
Sap Crm Developer Note: Yoseph is resting comfortably/denies significant incisional pain His lungs are clear and his abdomen remains mildly distended with returning bowel sounds/incisions are uncomplicated wbc is down to 13K and bili remains elevated at 1.6 (unconj 1.0) He has not had a bowel movement since admission and I ordered Senokot-S and transitioned him to oral analgesics. Kiet Lisa MD, FACS
[2016-10-17] MEDS: ENOXAPARIN 40 MG/0.4 ML SYR SC SCH (08:48)
[2016-10-17] MEDS: NIFEdipine ER 30 MG TAB PO SCH (08:48)
[2016-10-17] MEDS: SENNOSIDES/DOCUSATE SODIUM TAB PO SCH ×2 (09:45→20:17)
[2016-10-17] MEDS: HYDROCODONE/APAP 5/325 TAB PO PRN ×2 (11:19→20:17)
--- NOTE | 2016-10-17 11:58 | HOSPPROG ---
Hospitalist Progress Note Assessment/Plan: DIAGNOSES: # Acute pancreatitis-suspecting 2/2 passed cholelithiasis -MRCP shows cholelithiasis and no cholecystitis, no ductal dilatation noted -repeat CT with no necrosis, stones, ductal dilatation, phlegmon or other complication -continues to improve but still having some pain, and likely still some ileus from the pancreatitis # S/P Cholecystectomy 10/16 # Fever -resolved, due to pancreatitis but no sign of infection or necrosis # SIRS secondary to pancreatitis -resolved # acute delirium, multifactorial etiology -resolved # acute hypoxic respiratory failure- -likely atelectasis related to pain medication and splinting secondary to abdominal pain -much better today # 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 knee -improved after arthrocentesis and with rest # prophylaxis Lovenox # diet NPO PLANS: -his current pain may be due to ileus, so will continue liquid diet for the moment -resume lovenox -continue ambulation -potentially home 1-2 days SUBJECTIVE: today increase in lower abd pain; taking po clears well, no BM since admission He is not short of breath no confusion He is ambulating well OBJECTIVE Vitals reviewed: At this time stable without fever Exam: alert oriented relaxed skin warm dry color ok, no jaundice resps not labored lungs clear BSs heart regular abd soft nondistended,some tenderness in mid-lower abd with some guard but no rebound limbs warm, no edema; no effusion at left knee or tenderness at this time; moving knee well iv site ok Objective: Vital Signs Temp Pulse Resp BP Pulse Ox 36.6 C 74 16 125/83 H 93 10/17/16 10:50 10/17/16 10:50 10/17/16 10:50 10/17/16 10:50 10/17/16 10:50 Microbiology 10/15/16 09:55 Urine Culture - Final Urine,Clean Catch Three [place] Types 10/12/16 06:15 Blood Culture - Final Blood 10/12/16 06:20 Blood Culture - Final Blood 10/16/16 23:05 Gram Stain - Final Other - Eswab Laboratory Results 10/17/16 04:42 10/17/16 04:42 10/16/16 10/17/16 10/18/16 06:59 06:59 06:59 Intake Total 1848 1350 Output Total 650 1590 275 Balance 1198 -240 -275 PT 14.6 SEC (12.0-15.0) 10/16/16 12:20 INR 1.15 (0.83-1.16) 10/16/16 12:20 ICD10 Worksheet Patient Problems: Problems Problem Status Onset Biliary obstruction Acute Pancreatitis Acute
[2016-10-17] MEDS ORDERED: POTASSIUM Cl (KCl) 20 MEQ in LR 1,000 ML IV SCH (12:30)
[2016-10-17] MEDS: MELATONIN 3 MG TAB PO SCH (20:18)
[2016-10-18] MEDS: HYDROCODONE/APAP 5/325 TAB PO PRN ×2 (05:05→12:12)
--- NOTE | 2016-10-18 05:45 | PDCONSULT ---
Field Merchandiser Note: Yoseph is resting comfortably/he reports mild pain He had two bowel movements and is tolerating clear liquids Abd: soft/+BS, mildly distended, incisions o.k. AM labs pending Imp: clinically improved Rec: advance diet FU my office 2 weeks after discharge Kiet Lisa MD, FACS
[2016-10-18] MEDS: NIFEdipine ER 30 MG TAB PO SCH (10:00)
[2016-10-18] MEDS: ENOXAPARIN 40 MG/0.4 ML SYR SC SCH (10:01)
[2016-10-18] MEDS: SENNOSIDES/DOCUSATE SODIUM TAB PO SCH (10:49)
[2016-10-18 16:23] VITALS: BP 108/77; PULSE 79; RESP 18; TEMP 98.4
[2016-10-18 17:22] VITALS: O2SAT 87
--- NOTE | 2016-10-18 17:30 | PDDCSUM ---
Discharge Summary Discharge Summary: DISCHARGE DIAGNOSES: -ACUTE PANCREATITIS, MOST LIKELY DUE TO GALLSTONES -CHOLELITHIASIS -HYPOXEMIA DUE TO ATELECTASIS -ACUTE METABOLIC ENCEPHALOPATHY MULTIFACTORIAL -ACUTE CALCIUM PYROPHOSPHATE DEPOSITION ARTHROPATHY LEFT KNEE CONSULTANTS: DR Jim Lisa PROCEDURES: CT scan of abdomen MRI w MRCP Lap Cholecystectomy Arthrocentesis L knee HOSPITAL COURSE SUMMARY: This patient came in with epigastric pain and had acute pancreatitis. He uses no alcohol, but did have gall stones and high bili and transaminases which resolved. He was treated iwth bowel rest and IV fluids, pain control. His early coarse was complicated by some low grade fever but there was no sign of infection or necrosis. He had no other complications. He did undergo lap carrol once he stabilized. He is now eating solid food without pain or nausea, walking well, wound looks very good. He is medically stable for DC to home. He does have some exertional hypoxemia and mild dyspnea w that, but is ambulating and doing stairs well. He ideally would have some O2 for a bit but has no insurance coverage or money to pay for it. It is felt he will be safe without. He is encouraged to do incentive spirometry and increasing activity as able. MEDICATION CHANGES: none FOLLOW-UP PLAN: at Dr Lisa' office in 2 weeks Greater than 35 minutes bedside and care coordination time today
== END 2016-10-18 20:04 | disposition home or self-care (01) | DRG 418 ==
LOC: F1N 19:53
PROVIDERS: ADMIT Internal Medicine; ATTEND Internal Medicine
PROC: 0M9P3ZZ Drainage of Left Knee Bursa and Ligament, Percutaneous Approach (ICD-10-PCS; 2016-10-11)
PROC: 0FT44ZZ Resection of Gallbladder, Percutaneous Endoscopic Approach (ICD-10-PCS; principal; 2016-10-16 21:33)
DX: K85.10 Biliary acute pancreatitis without necrosis or infection (principal); K80.12 Calculus of gallbladder with acute and chronic cholecystitis without obstruction; K76.0 Fatty (change of) liver, not elsewhere classified; J98.11 Atelectasis; R09.02 Hypoxemia; I87.8 Other specified disorders of veins; M71.462 Calcium deposit in bursa, left knee; I10 Essential (primary) hypertension; Z23 Encounter for immunization; E66.9 Obesity, unspecified; Z68.30 Body mass index [BMI] 30.0-30.9, adult
CPT/HCPCS: 82947-QW; 96374; 97116-GP; 97161-GP; 97164-GP; 97165-GO; 97530-GO; 97535-GO; G0009; J0690; J1100; J1170; J1650; J2250; J2370; J2405; J2704; J2710; J2780; J3010; Q9967